=== PATIENT | male | born 1950 | race Caucasian/White ===

== ENCOUNTER 2017-06-26 17:28 | Emergency (ER) | payer BC ==
[~2017-06-26] VITALS: Ht 172.7 cm; Wt 78.5 kg
[~2017-06-26 17:28] MED LIST: ACET-73 PO
[2017-06-26] MEDS ORDERED: TDAP DIPH,PERTUSS,TET VAC/PF 0.5 ML DISP.SYRIN IM ONE ×2 (17:45→18:02)
--- NOTE | 2017-06-26 18:47 | NUR ---
Patient discharged to home in stable conditon. Written and verbal after care instructions given. Patient verbalizes understanding of instructions.PT WALKS IN STEADY GAIT. PT WITH FAMILY MEMBER. PT DENEIS ANY DIZZINESS OR HEADACHE
[2017-06-26 18:48] VITALS: BP 131/59
== END 2017-06-26 18:49 | disposition home or self-care (01) ==
LOC: ER 17:28
DX: S61.412A Laceration without foreign body of left hand, initial encounter (principal); S09.90XA Unspecified injury of head, initial encounter; W22.03XA Walked into furniture, initial encounter; Y93.89 Activity, other specified; Y92.89 Other specified places as the place of occurrence of the external cause; Y99.8 Other external cause status; Z88.0 Allergy status to penicillin
CPT/HCPCS: 12001; 70450; 90471; 90715; 99284; A4663

== ENCOUNTER 2024-02-25 19:07 | Emergency (ER) | payer BC | END 2024-02-25 19:33 | disposition left against medical advice (07) | LOC: ER 19:25 | DX: R52 Pain, unspecified (principal); Z53.21 Procedure and treatment not carried out due to patient leaving prior to being seen by health care provider ==